=== PATIENT | female | born 1935 | race Caucasian/White ===

== ENCOUNTER 2020-10-20 13:58 | Observation (INO) | payer MEDICARE, OTHER ==
[~2020-10-20] VITALS: Ht 162.6 cm; Wt 61.5 kg
[~2020-10-20 13:58] MED LIST: ACIDOPHILUS1 EAC3 PO; EUTHYROX50 MCG PO; LOSARTAN-HCTZ1 EAC6 PO; VITAMIN D31000 UNI1 PO; Vitamin B-121000 MCG PO
[2020-10-20 14:28] LABS: BASOPHILS ABSOLUTE AUTO 0.03 K/mm3 (0.00-0.23); BASOPHILS PERCENT AUTO 0 % (0-2); EOSINOPHILS ABSOLUTE AUTO 0.01 K/mm3 (0.00-0.68); EOSINOPHILS PERCENT AUTO 0 % (0-6); Hematocrit 38.5 % (33.0-51.0); Hemoglobin 13.7 g/dL (11.5-16.0); IMMATURE GRAN ABSOLUTE AUTO 0.03 K/mm3 (0.00-0.10); IMMATURE GRAN PERCENT AUTO 0 % (0-1); LYMPHOCYTES ABSOLUTE AUTO 1.05 K/mm3 (0.84-5.20); LYMPHOCYTES PERCENT AUTO 13 % (21-46); MONOCYTES ABSOLUTE AUTO 0.68 K/mm3 (0.16-1.47); MONOCYTES PERCENT AUTO 8 % (4-13); Mean Corpuscular HGB 32.1 pg (26.0-34.0); Mean Corpuscular HGB Conc 35.6 g/dL (31.5-36.5); Mean Corpuscular Volume 90 fL (80-100); Mean Platelet Volume 8.4 fL (9.1-12.4); NEUTROPHILS ABSOLUTE AUTO 6.54 K/mm3 (1.96-9.15); NEUTROPHILS PERCENT AUTO 78 % (41-73); Platelet Count 478 K/mm3 (150-400); RDW Coefficient Variation 11.9 % (11.7-14.2); RDW Standard Deviation 38.9 fL (35.1-46.3); Red Blood Cell Count 4.27 M/mm3 (3.80-5.20); White Blood Cell Count 8.34 K/mm3 (4.00-11.30)
[2020-10-20] MEDS ORDERED: AMLO5 PO (14:41)
[2020-10-20 14:50] LABS: Alanine Aminotransfer (ALT/SGP 18 U/L (12-78); Albumin, Blood 3.7 g/dL (3.4-5.0); Albumin/Globulin Ratio 0.9 (0.8-1.8); Alk Phos 91 U/L (50-136); Anion Gap 10 mmol/L (6-16); Aspartate Aminotrans (AST/SGOT 15 U/L (12-37); Bilirubin, Total 0.6 mg/dL (0.1-1.0); Blood Urea Nitrogen 14 mg/dL (8-24); Bun/Creatinine Ratio 20.7 (12.0-20.0); CO2, Blood 24 mmol/L (21-32); Calcium, Blood 8.8 mg/dL (8.5-10.1); Chloride, Blood 89 mmol/L (98-108); Creatinine, Blood 0.68 mg/dL (0.40-1.00); Globulin, Blood 4.1 g/dL (2.2-4.0); Glomerular Filtration Rate >60 (60-); Glucose, Blood 110 mg/dL (70-99); Potassium, Blood 2.7 mmol/L (3.5-5.5); Sodium, Blood 123 mmol/L (136-145); Total Protein, Blood 7.8 g/dL (6.4-8.2); Troponin I <0.015 ng/mL (0.000-0.040)
[2020-10-20 19:02] LABS: Albumin, Blood 3.5 g/dL (3.4-5.0); Anion Gap 8 mmol/L (6-16); Blood Urea Nitrogen 11 mg/dL (8-24); Bun/Creatinine Ratio 20.2 (12.0-20.0); CO2, Blood 23 mmol/L (21-32); Calcium, Blood 8.2 mg/dL (8.5-10.1); Chloride, Blood 94 mmol/L (98-108); Creatinine, Blood 0.54 mg/dL (0.40-1.00); Glomerular Filtration Rate >60 (60-); Glucose, Blood 91 mg/dL (70-99); Phosphorus, Blood 2.7 mg/dL (2.5-4.9); Potassium, Blood 3.8 mmol/L (3.5-5.5); Sodium, Blood 125 mmol/L (136-145)
--- NOTE | 2020-10-20 19:16 | NUR ---
Echocardiogram completed.
[2020-10-20] MEDS ORDERED: VIT1CAPS12 PO (20:42)
[2020-10-20] MEDS ORDERED: ARTIFICIAL TEAR15 M2 BOTHEYES (20:42)
[2020-10-20] MEDS ORDERED: Calcium Carbon500 MG PO (20:44)
--- NOTE | 2020-10-21 04:13 | NUR ---
SHIFT SUMMARY PT HAS RESTED MOST OF THE NIGHT. SINCE ARRIVING TO THE UNIT PT HAS NO HAD ANY RECURRENT EPISODES OF AFIB. PT HAS REMAINED IN SINUS RHYTHM ON TELE. PT HAS BEEN HYPERTENSIVE, MEDICATED WITH HYDRALYZINE X1 WITH EFFECT. PT DENIES CHEST PAIN, OR ANY PAIN IN GENERAL. IVF INFUSED ORDERED. PT HAS BEEN INDEPENDENT IN THE ROOM. PT OBSERVATION STATUS, AND IS HOPING TO BE DC TODAY. BED IN LOWEST POSITION, CALL LIGHT WITHIN REACH.
[2020-10-21 06:21] LABS: Anion Gap 10 mmol/L (6-16); Blood Urea Nitrogen 11 mg/dL (8-24); Bun/Creatinine Ratio 18.1 (12.0-20.0); CO2, Blood 22 mmol/L (21-32); Calcium, Blood 8.6 mg/dL (8.5-10.1); Chloride, Blood 95 mmol/L (98-108); Creatinine, Blood 0.61 mg/dL (0.40-1.00); Glomerular Filtration Rate >60 (60-); Glucose, Blood 81 mg/dL (70-99); Sodium, Blood 127 mmol/L (136-145)
--- NOTE | 2020-10-21 06:40 | NUR ---
POTASSIUM/SODIUM POTASSIUM 3.0 AND SODIUM [address] VELIZ CALLED AND NOTIFIED. ORDERED RECEIVED FOR 40 MEQ PO POTASSIUM X1.
[2020-10-21] MEDS ORDERED: ELIQUIS5 M2 PO (16:14)
[2020-10-21] MEDS ORDERED: LOSA50 PO (16:14)
[2020-10-21] MEDS ORDERED: METO25 PO (16:15)
--- NOTE | 2020-10-21 17:29 | NUR ---
DISCHARGE DISCHARGE MEDICATIONS AND INSTRUCTIONS EXPLAINED TO PATIENT. PATIENT STATED UNDERSTANDING. PCP FOLLOW UP SCHEDULED. IV REMOVED WITHOUT ISSUE. BELONGIGNS WITH PATIENT. PATIENT TRANSFERED TO PRIVATE VEHICLE VIA WHEELCHAIR.
== END 2020-10-21 17:14 | disposition home or self-care (01) ==
LOC: ER 13:58 → ERHOLD 13:59 → MEDS 19:46
PROVIDERS: Emergency Medicine; ADMIT Internal Medicine Endocrinology, Diabetes & Metabolism
DX: I48.91 Unspecified atrial fibrillation (principal); E87.6 Hypokalemia; E87.1 Hypo-osmolality and hyponatremia; E83.42 Hypomagnesemia; R80.9 Proteinuria, unspecified; E03.9 Hypothyroidism, unspecified; I44.0 Atrioventricular block, first degree; I49.3 Ventricular premature depolarization; I11.9 Hypertensive heart disease without heart failure; I08.1 Rheumatic disorders of both mitral and tricuspid valves; I31.3 Pericardial effusion (noninflammatory); I27.20 Pulmonary hypertension, unspecified; Z88.1 Allergy status to other antibiotic agents; Z88.8 Allergy status to other drugs, medicaments and biological substances; Z87.891 Personal history of nicotine dependence
CPT/HCPCS: 36415; 71045; 80048; 80053; 80069; 83735; 83880; 83930; 83935; 84133; 84300; 84443; 84484; 85025; 93005; 93010; 93306; 96365; 96366; 96374; 99285-25; A9270; G0378; J0360; J3480

== ENCOUNTER 2021-04-16 06:06 | Day surgery (SDC) | payer MEDICARE, OTHER ==
[~2021-04-16] VITALS: Ht 157.5 cm; Wt 61.8 kg
[~2021-04-16 06:06] MED LIST changes: +AMLO5 PO; +ARTIFICIAL TEAR15 M2 BOTHEYES; +Calcium Carbon500 MG PO; +Coumadin2 MG PO; +ELIQUIS5 M2 PO; +LOSA50 PO; +METO25 PO; +VIT1CAPS12 PO
[2021-04-16] MEDS ORDERED: AMLO5 PO (06:23)
[2021-04-16] MEDS ORDERED: LOSA50 PO (06:24)
[2021-04-16] MEDS ORDERED: EUTHYROX50 MCG PO (06:24)
[2021-04-16] MEDS ORDERED: METO25 PO (06:25)
[2021-04-16] MEDS ORDERED: WARF2 PO (06:25)
[2021-04-16] MEDS ORDERED: KLOR-CON 1010 ME2 PO (06:26)
[2021-04-16] MEDS ORDERED: ATOR40TA PO (06:28)
[2021-04-16] MEDS ORDERED: PANT40 PO (06:29)
--- NOTE | 2021-04-16 11:19 | NUR ---
PT TR BAND REMOVED. DOT DRESSING APPLIED. NO BLEEDING NOTED. VSS. NADN. PT ASSISTED WITH DRESSING. TOLERATES WELL. PT IV DC'D. CATH INTACT. PRESSURE DSG APPLIED. PT VERBALIZES UNDERSTANDING WRITTEN AND VERBAL INSTRUCTIONS. PT AWAITING RIDE AT 11:30 FOR DISCHARGE VIA
== END 2021-04-16 11:30 | disposition home or self-care (01) ==
LOC: MHTC 06:06
DX: R06.02 Shortness of breath (principal); R53.83 Other fatigue; I27.20 Pulmonary hypertension, unspecified; I48.0 Paroxysmal atrial fibrillation; E03.9 Hypothyroidism, unspecified; E78.5 Hyperlipidemia, unspecified; I10 Essential (primary) hypertension; F17.200 Nicotine dependence, unspecified, uncomplicated; Z88.6 Allergy status to analgesic agent; Z88.1 Allergy status to other antibiotic agents; Z88.0 Allergy status to penicillin; Z88.8 Allergy status to other drugs, medicaments and biological substances; Z79.01 Long term (current) use of anticoagulants
CPT/HCPCS: 76937; 93458; 99152; 99153; C1769; C1887; C1894; J1644; J2250; J3010; J3370; J7030; J7050; Q9967

== ENCOUNTER 2021-10-08 07:01 | Emergency (ER) | payer MEDICARE, OTHER ==
[~2021-10-08] VITALS: Ht 157.5 cm; Wt 57.1 kg
[~2021-10-08 07:01] MED LIST changes: +ATOR40TA PO; +KLOR-CON 1010 ME2 PO; +PANT40 PO; +WARF2 PO
[2021-10-08 07:46] LABS: International Normalized Ratio 3.65; Prothrombin Time Results 35.2 Sec (9.7-11.5)
== END 2021-10-08 08:24 | disposition home or self-care (01) ==
LOC: ER 07:01
PROVIDERS: Emergency Medicine
DX: R04.0 Epistaxis (principal); I10 Essential (primary) hypertension; E03.9 Hypothyroidism, unspecified; Z79.01 Long term (current) use of anticoagulants; Z88.0 Allergy status to penicillin; Z88.8 Allergy status to other drugs, medicaments and biological substances; Z88.1 Allergy status to other antibiotic agents
CPT/HCPCS: 85610

== ENCOUNTER 2025-01-04 10:51 | Emergency (ER) | payer MEDICARE, OTHER ==
[~2025-01-04] VITALS: Ht 157.5 cm; Wt 46.7 kg
[2025-01-04 11:44] LABS: BASOPHILS ABSOLUTE AUTO 0.08 K/mm3 (0.00-0.23); BASOPHILS PERCENT AUTO 1 % (0-2); EOSINOPHILS ABSOLUTE AUTO 0.03 K/mm3 (0.00-0.68); EOSINOPHILS PERCENT AUTO 0 % (0-6); Hematocrit 49.2 % (33.0-51.0); Hemoglobin 16.7 g/dL (11.5-16.0); IMMATURE GRAN ABSOLUTE AUTO 0.03 K/mm3 (0.00-0.10); IMMATURE GRAN PERCENT AUTO 0 % (0-1); LYMPHOCYTES ABSOLUTE AUTO 0.82 K/mm3 (0.84-5.20); LYMPHOCYTES PERCENT AUTO 8 % (21-46); MONOCYTES ABSOLUTE AUTO 0.51 K/mm3 (0.16-1.47); MONOCYTES PERCENT AUTO 5 % (4-13); Mean Corpuscular HGB Conc 33.9 g/dL (31.5-36.5); Mean Corpuscular Volume 96 fL (80-100); NEUTROPHILS ABSOLUTE AUTO 8.48 K/mm3 (1.96-9.15); NEUTROPHILS PERCENT AUTO 85 % (41-73); NRBC ABSOLUTE 0.00 K/mm3 (0.00-0.02); NRBC Auto 0.0 /100 WBC (0.0-0.2); Platelet Count 374 K/mm3 (150-400); RDW Coefficient Variation 13.8 % (11.7-14.2); RDW Standard Deviation 49.1 fL (35.1-46.3)
[2025-01-04 12:00] LABS: Prothrombin Time Results 21.9 Sec (9.7-11.5)
[2025-01-04 12:10] LABS: Alanine Aminotransfer (ALT/SGP 35.0 U/L (12-78); Albumin, Blood 4.0 g/dL (3.4-5.0); Albumin/Globulin Ratio 0.9 (0.8-1.8); Anion Gap 13.0 mmol/L (3-11); Aspartate Aminotrans (AST/SGOT 34.0 U/L (12-37); Bilirubin, Total 0.9 mg/dL (0.1-1.0); Blood Urea Nitrogen 47.0 mg/dL (8-24); CO2, Blood 25.0 mmol/L (21-32); Calcium, Blood 9.7 mg/dL (8.5-10.1); Chloride, Blood 96.0 mmol/L (98-108); Creatinine, Blood 1.16 mg/dL (0.40-1.00); Globulin, Blood 4.3 g/dL (2.2-4.0); Glucose, Blood 139.0 mg/dL (70-99); Potassium, Blood 4.1 mmol/L (3.5-5.5); Sodium, Blood 130.0 mmol/L (136-145); Total Protein, Blood 8.3 g/dL (6.4-8.2)
[2025-01-04] MEDS ORDERED: ACIDOPHILUS PO (12:17)
[2025-01-04] MEDS ORDERED: PRESERVISION A1 EAC1 PO (12:18)
[2025-01-04] MEDS ORDERED: OLME20 PO (12:18)
[2025-01-04] MEDS ORDERED: PYRI100 PO (12:18)
[2025-01-04] MEDS ORDERED: VITAMIN D310 MC1 (12:18)
[2025-01-04] MEDS ORDERED: TORSE20 PO (12:19)
[2025-01-04] MEDS ORDERED: TIZA4 PO (12:19)
[2025-01-04 13:15] VITALS: BP 136/80
== END 2025-01-04 13:20 | disposition home or self-care (01) ==
LOC: ER 10:51
PROVIDERS: Emergency Medicine
DX: S00.03XA Contusion of scalp, initial encounter (principal); R55 Syncope and collapse; E03.9 Hypothyroidism, unspecified; I10 Essential (primary) hypertension; E78.5 Hyperlipidemia, unspecified; W22.8XXA Striking against or struck by other objects, initial encounter; Z79.01 Long term (current) use of anticoagulants; Z79.899 Other long term (current) drug therapy; Z88.0 Allergy status to penicillin; Z88.1 Allergy status to other antibiotic agents; Z88.8 Allergy status to other drugs, medicaments and biological substances
CPT/HCPCS: 70450; 71045; 80053; 84484; 85025; 85610; 85730; 93005; 93010; 99284-25